=== PATIENT | female | born 1955 | race Two or more races ===

== ENCOUNTER → 2019-01-13 | Outpatient (CLI) | payer OTHER ==
[~2019-01-13] MED LIST: LIDOCAINE 2%/EPI 1:100,000 20 ML VIAL. IJ ONE
--- NOTE | 2019-01-14 17:19 | PATHOLOGY ---
[facility] Accession Number: [id number] . 01 Material submitted: . breast - LEFT BREAST TISSUE, RETROAREOLAR. Modifiers: left . 01 Clinical history: . Left breast mass . 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 ([facility] 01/14/2019) P/01/14/2019 . 02 Comment: There is no evidence of malignancy. (JPM:[facility] 01/14/2019) . 02 Electronically signed: . Law Fortune MD, Pathologist NPI- [id number] . 01 Gross description: . The specimen is received in formalin, labeled "Shelly Chapman, left breast mass". Received are multiple needle cores of fibrofatty tissue measuring 2.4 x 1.8 x 0.3 cm in aggregate dimensions. The specimen is submitted entirely in cassettes A1 through A3. The cold ischemic time is 3 minutes. The total formalin fixation time is 12 hours and 5 minutes. ([facility]; 01/13/2019) QAC/QAC . 02 Pathologist provided ICD-10: N60.42, N61.0 . 02 CPT . 350641 Specimen Comment: A courtesy copy of this report has been sent to Specimen Comment: [phone], . Specimen Comment: Report sent to / DR OSWALD Performed at: 01 [facility] [address], [place] [id number] MD Austin Greene MD Phone: [phone] Performed at: 02 [facility] [address], [place] [id number] MD Law Fortune MD Phone: [phone]
--- NOTE | 2019-01-15 12:42 | RAD ---
Ultrasound-guided left breast biopsy, 01/13/2019: History: Abnormal ultrasound findings An outside ultrasound study demonstrated a suspicious echogenic process in the retroareolar region on the left. Under local anesthesia, aseptic conditions and sonographic guidance the [employer] biopsy instrument was passed into this region via a lateral approach. Multiple 12-gauge vacuum-assisted core samples were obtained and sent to pathology for evaluation. A biopsy marker was then deposited the biopsy site. The biopsy instrument was removed and hemostasis obtained. Two-view postprocedural mammograms were obtained to document position of the biopsy marker. The marker lies just lateral to the midline in the retroareolar region. The patient tolerated the procedure well and left the department in good condition. The subsequent pathology report indicated the presence of mammary duct ectasia with ductal ectasia and xanthogranulomatous mastitis. There was no evidence of malignancy. The findings are considered to be concordant.
== END | disposition home or self-care (01) ==
LOC: US 08:28
PROVIDERS: ATTEND Nurse Practitioner
DX: N60.42 Mammary duct ectasia of left breast (principal); N61.0 Mastitis without abscess
CPT/HCPCS: 19083; 77065; C1713; 19085; 76942; 88305

== ENCOUNTER 2021-04-04 02:53 | Emergency (ER) | payer SELFPAY ==
[~2021-04-04] VITALS: Ht 152.4 cm; Wt 95.0 kg
[2021-04-04 03:13] LABS: BASO % 1 % (0-3); EOS # 0.1 x10^3/uL (0.0-0.7); EOS % 1 % (0-3); HEMATOCRIT 39.2 % (36.0-47.0); HEMOGLOBIN 13.3 g/dL (12.0-15.5); LYMPH # 2.9 x10^3/uL (1.0-4.8); LYMPH % 48 % (24-48); MEAN CORPUSCULAR HEMOGLOBIN 32 pg (25-35); MEAN CORPUSCULAR HGB CONC 34 g/dL (31-37); MEAN CORPUSCULAR VOLUME 94 fL (79-100); MONO # 0.5 x10^3/uL (0.0-1.1); MONO % 8 % (0-9); NEUT # 2.6 x10^3/uL (1.8-7.7); NEUT % 43 % (31-73); PLATELET COUNT 208 x10^3/uL (140-400); RED BLOOD COUNT 4.19 x10^6/uL (3.50-5.40); RED CELL DISTRIBUTION WIDTH 12.6 % (11.5-14.5); WHITE BLOOD COUNT 6.2 x10^3/uL (4.0-11.0)
[2021-04-04 03:25] LABS: CALCIUM 9.2 mg/dL (8.5-10.1); CREATININE 0.8 mg/dL (0.6-1.0); GFR 72.4; POTASSIUM 3.6 mmol/L (3.5-5.1)
[2021-04-04 03:30] LABS: ALBUMIN 3.8 g/dL (3.4-5.0); ALBUMIN/GLOBULIN RATIO 1.1 (1.0-1.7); MAGNESIUM 2.1 mg/dL (1.8-2.4); TOTAL BILIRUBIN 0.2 mg/dL (0.2-1.0); TOTAL PROTEIN 7.4 g/dL (6.4-8.2)
--- NOTE | 2021-04-04 03:30 | PHYS DOC ---
General Adult EDM: Chief Complaint: CHEST PAIN HPI: HPI: 65-year-old female past medical history of hypertension, hyperlipidemia and obesity, presents the ED with complaints of progressive, worsening headache that started around 6 PM with chest palpitations described as " I felt it was going really fast," and shaking that worsened throughout the night. Patient checked her blood pressure at home it was 190/90. Was unable to sleep, called her son who brought her to the emergency department and is assisting with translation. Patient is unsure of her baseline systolic blood pressure. Reports compliance with medication. Review of Systems: Review of Systems: Constitutional: Denies fever or chills. [] Eyes: Denies change in visual acuity. [] HENT: Denies nasal congestion or sore throat. [] Respiratory: Denies cough or shortness of breath. [] Cardiovascular: Denies hemoptysis or edema. [] GI: Denies abdominal pain, nausea, vomiting, or diarrhea. [] : Denies dysuria or hematuria Musculoskeletal: Denies back pain or joint pain. [] Integument: Denies rash or diaphoresis Neurologic: Denies neck pain, focal weakness or sensory changes. [] Endocrine: Denies polyuria or polydipsia. [] Lymphatic: Denies swollen glands. [] Psychiatric: Denies depression or suicidal ideations Heart Score: C/O Chest Pain: No HEART Score for Chest Pain: HEART Score for Chest Pain Response (Comments) Value History Slighlty/Non-Suspicious 0 ECG Nonspecific Repolarizatio 1 Age >45 - < 65 1 Risk Factors >3 Risk Factors or Hx CAD 2 Troponin < Normal Limit 0 Total 4 Risk Factors: Risk Factors: DM, Current or recent (<one month) smoker, HTN, HLP, family history of CAD, obesity. Risk Scores: Score 0 - 3: 2.5% MACE over next 6 weeks - Discharge Home Score 4 - 6: 20.3% MACE over next 6 weeks - Admit for Clinical Observation Score 7 - 10: 72.7% MACE over next 6 weeks - Early Invasive Strategies Allergies: Allergies: Allergies Coded Allergies Type Severity Reaction Last Updated Verified No Known Drug Allergies 01/13/19 No Physical Exam: PE: Constitutional: Well developed, well nourished, no acute distress, non-toxic appearance, hypertensive on arrival HENT: Normocephalic, atraumatic, Eyes: EOMI, conjunctiva normal, no discharge. Neck: Normal range of motion, supple, Cardiovascular: S1/2 present, regular rhythm Lungs & Thorax: Speaking in full sentences, bilateral equal chest rise, no tachypnea or increased work of breathing Abdomen: soft, no tenderness, Skin: Warm, dry, Back: No tenderness, no CVA tenderness. [] Extremities: No tenderness, no cyanosis, Neurologic: Alert and oriented X 3, normal motor function, normal sensory function, no focal deficits noted, gait Psychologic: judgement normal, mood-roving eye movements, very anxious/appears chronological difficulty, Current Patient Data: Labs: Laboratory Tests Test 04/04/21 03:07 White Blood Count 6.2 x10^3/uL (4.0-11.0) Red Blood Count 4.19 x10^6/uL (3.50-5.40) Hemoglobin 13.3 g/dL (12.0-15.5) Hematocrit 39.2 % (36.0-47.0) Mean Corpuscular Volume 94 fL (79-100) Mean Corpuscular Hemoglobin 32 pg (25-35) Mean Corpuscular Hemoglobin Concent 34 g/dL (31-37) Red Cell Distribution Width 12.6 % (11.5-14.5) Platelet Count 208 x10^3/uL (140-400) Neutrophils (%) (Auto) 43 % (31-73) Lymphocytes (%) (Auto) 48 % (24-48) Monocytes (%) (Auto) 8 % (0-9) Eosinophils (%) (Auto) 1 % (0-3) Basophils (%) (Auto) 1 % (0-3) Neutrophils # (Auto) 2.6 x10^3/uL (1.8-7.7) Lymphocytes # (Auto) 2.9 x10^3/uL (1.0-4.8) Monocytes # (Auto) 0.5 x10^3/uL (0.0-1.1) Eosinophils # (Auto) 0.1 x10^3/uL (0.0-0.7) Basophils # (Auto) 0.0 x10^3/uL (0.0-0.2) Laboratory Tests 04/04/21 03:07 EKG: EKG: Sinus rhythm 70 bpm, left axis deviation, normal intervals, T wave inversion lead III, no ST elevations or ST depressions, no active chest pain Repeat EKG sinus rhythm 73 bpm, left axis deviation, normal intervals, T wave inversion lead III, no ST elevations or ST depressions, PVC present Radiology/Procedures: Radiology/Procedures: IMAGING REPORT Signed PATIENT: MARY EDGE ACCOUNT: [id number] : 1955 LOCATION: ER AGE: 65 SEX: F EXAM STATUS: PRE ER ORD. PHYSICIAN: KAREN AGUILAR DO REASON: hedache PROCEDURE: CT HEAD WO CONTRAST CT HEAD/BRAIN WO Date: 04/04/2021 3:47 AM Clinical Indication: Reason: hedache / Spl. Instructions: / History: Comparison: None. Technique: 5 mm axial tomographic images were obtained of the head without contrast. These were viewed on brain and bone windows. One or more of the following dose reduction techniques were utilized: Automated exposure control (AEC), Adjustment of mA and/or kV according to patient size, Use of iterative reconstruction technique such as ASiR, CT scan done according to ALARA and image gently/image wisely Findings: The brain parenchyma is normal in attenuation. No acute hemorrhage. The ventricles are normal in size, shape, and morphology. The dawkins-white matter junction is normal. The subarachnoid cisterns are patent. Left posterior frontal 6 mm dural calcification versus tiny meningioma. The visualized paranasal sinuses are normal. The visualized portions of the orbits and globes are normal. The mastoid air cells are clear. The turkish line attendant topogram shows no lytic lesion or fracture. Impression: No acute intracranial process. Electronically signed by: Irene Plasencia MD (04/04/2021 3:57 AM) [facility] DICTATED and SIGNED BY: IRENE PLASENCIA MD DATE: 04/04/21 [id number] IMAGING REPORT Signed PATIENT: MARY EDGE ACCOUNT: [id number] : 1955 LOCATION: ER AGE: 65 SEX: F EXAM STATUS: PRE ER ORD. PHYSICIAN: KAREN AGUILAR DO REASON: cp PROCEDURE: PORTABLE CHEST 1V XR CHEST 1V INDICATION: cp COMPARISON STUDY: None. FINDINGS: Lungs: Normal lung volume. No focal airspace disease. Normal pulmonary vasculature. Pleura: No pleural effusion or pneumothorax. Heart and Mediastinum: Cardiomegaly. Tortuous atherosclerotic aorta. IMPRESSION: No acute cardiopulmonary process. Electronically signed by: Irene Plasencia MD (04/04/2021 3:49 AM) [facility] DICTATED and SIGNED BY: IRENE PLASENCIA MD DATE: 04/04/21 [id number] 0 Course & Med Decision Making: Course & Med Decision Making Pertinent Labs and Imaging studies reviewed. (See chart for details) Concern for headache, palpitations and decreased sleep with associated nervousness. On reevaluation patient states she has racing thoughts and has been worrying constantly. Takes no routine medications for anxiety or stress. Was unable to sleep all night. Will discharge home with strict ED return p recautions were given for chest pressure, syncope, neurologic deficits, dyspnea, suicidal or homicidal ideations. Encouraged urgent outpatient follow-up with PMD and psychiatry. Life-threatening processes were considered but are low suspicion at this time, given history, physical exam and ED workup. Pt was educated on all prescription medications and adverse effects. All patient's questions were answered and pt was stable at time of discharge. Life/limb-threatening differential includes but is not limited to, end organ damage/sepsis, ICH/CVA, ACS/CAD/angina, PE, trauma/abuse/neglect, neurologic deficit, alcohol/drug ingestion, toxidrome, suicidal/homicidal ideations plans or attempts, psychosis or mental illness resulting in self neglect and inability to care for self. I have spoken with the patient and/or caregivers. I explained the patient's condition, diagnoses and treatment plan based on the information available to me at this time. I have answered the patient and/or caregiver's questions and addressed any concerns. The patient and/or caregivers have a good understanding of patient's diagnosis, condition and treatment plan as can be expected at this point. Vital signs have been stable. Patient's condition is stable and appropriate for discharge from the emergency department. Patient will pursue further outpatient evaluation with primary care physician or other designated or consulting physician as outlined in the discharge instructions. The patient and/or caregivers are agreeable to this plan of care and follow-up instructions have been explained in detail. The patient and/or caregivers have received these instructions in written form and have expressed a n understanding of the discharge instructions. The patient and/or caregivers are aware that any significant change of condition or worsening of symptoms should prompt immediate return to this or the closest emergency department or call to 911Dean Markham Disclaimer: Shahrzad Disclaimer: This electronic medical record was generated, in whole or in part, using a voice recognition dictation system. Departure Departure Impression: Primary Impression: Anxiety Additional Impressions: Palpitations Headache Disposition: HOME / SELF CARE / HOMELESS Condition: STABLE Referrals: SUNNY OSWALD RN, MS, FN (PCP) Follow-up with your primary care physician in 24 to 48 hours OR FOLLOW UP WITH FAMILY MEDICINE: [address] [facility] [place] [address] AND TO RECHECK BLOOD PRESSU Patient Instructions: Anxiety and Panic Attacks, General Headache Without Cause Additional Instructions: FOLLOW UP WITH PSYCHIATRY: FOR DEFINITIVE MANAGEMENT of anxiety Dr. Tommy Angeles Psychiatry Specialist [address], [place] [address] EMERGENCY DEPARTMENT GENERAL DISCHARGE INSTRUCTIONS Thank you for coming to [facility] Emergency Department (ED) today and trusting us with you care. We trust that you had a positive experience in our Emergency Department. If you wish to speak to the department management, you may call the Director at [phone]. YOUR FOLLOW UP INSTRUCTIONS ARE FOLLOWS: 1. Do you have a private Doctor? If you do not have a private doctor, please ask for a resource list of physicians or clinics that may be able to assist you with follow up care. 2. The Emergency Physicain has interpreted your x-rays. The X-Ray specialist will also review them. If there is a change in the findings, you will be notified in 48 hours when at all possible. 3. A lab test or culture has been done, your results will be reviewed and you will be notified if you need a change in treatment. ADDITIONAL INSTRUCTIONS AND INFORMATION: 1. Your care today has been supervised by a physician who is specially trained in emergency care. Many problems require more than one evaluation for a complete diagnosis and treatment. We recommend that you schedule your follow up appointment as recommended to ensure complete treatment of you illness or injury. If you are unable to obtain follow up care and continue to have a problem, or if your condition worsens, we recommend that you return to the ED. 2. We are not able to safely determine your condition over the phone nor are we able to give sound medical advice over the phone. For these safety reasons, if you call for medical advice we will ask you to come to the ED for further evaluation. 3. If you have any questions regarding these discharge instructions please call the ED at [phone]. SAFETY INFORMATION: In the interest of safety, wellness, and injury prevention; we encourage you to wear your sealbelt, if you smoke; quite smoking, and we encourage family to use a protective helmet for bicycling and other sporting events that present an increased risk for head injury. IF YOUR SYMPTOMS WORSEN OR NEW SYMPTOMS DEVELOP, OR YOU HAVE CONCERNS ABOUT YOUR CONDITION; OR IF YOUR CONDITION WORSENS WHILE YOU ARE WAITING FOR YOUR FOLLOW UP APPOINTMENT; EITHER CONTACT YOUR PRIMARY CARE DOCTOR, THE PHYSICIAN WHOSE NAME AND NUMBER YOU WERE GIVEN, OR RETURN TO THE ED IMMEDIATELY. Scripts Hydroxyzine Hcl (HYDROXYZINE HCL) 25 Mg Tablet 1-2 TAB PO QHS PRN for INSOMNIA, #20 TAB Prov: KAREN AGUILAR DO 04/04/21 KAREN AGUILAR DO Apr 04, 2021 03:30
--- NOTE | 2021-04-04 03:51 | RAD ---
XR CHEST 1V INDICATION: cp COMPARISON STUDY: None. FINDINGS: Lungs: Normal lung volume. No focal airspace disease. Normal pulmonary vasculature. Pleura: No pleural effusion or pneumothorax. Heart and Mediastinum: Cardiomegaly. Tortuous atherosclerotic aorta. IMPRESSION: No acute cardiopulmonary process. Electronically signed by: Abisai Plasencia MD (04/04/2021 3:49 AM) [facility]
--- NOTE | 2021-04-04 03:59 | RAD ---
CT HEAD/BRAIN WO Date: 04/04/2021 3:47 AM Clinical Indication: Reason: hedache / Spl. Instructions: / History: Comparison: None. Technique: 5 mm axial tomographic images were obtained of the head without contrast. These were view ed on brain and bone windows. One or more of the following dose reduction techniques were utilized: A utomated exposure control (AEC), Adjustment of mA and/or kV according to patient size, Use of iterati ve reconstruction technique such as ASiR, CT scan done according to ALARA and image gently/image cho ly Findings: The brain parenchyma is normal in attenuation. No acute hemorrhage. The ventricles are normal in size , shape, and morphology. The dawkins-white matter junction is normal. The subarachnoid cisterns are barcenas nt. Left posterior frontal 6 mm dural calcification versus tiny meningioma. The visualized paranasal sinuses are normal. The visualized portions of the orbits and globes are no rmal. The mastoid air cells are clear. The college scouting coordinator topogram shows no lytic lesion or fracture. Impression: No acute intracranial process. Electronically signed by: Abisai Plasencia MD (04/04/2021 3:57 AM) [facility]
[2021-04-04] MEDS ORDERED: KETOROLAC 15 MG/ML VIAL. IVP ONE (05:00)
[2021-04-04] MEDS ORDERED: DEXAMETHASONE SOD PHOS 20 MG/5 ML VIAL. IV ONE (05:00)
[2021-04-04 05:13] LABS: BILIRUBIN,URINE NEGATIVE (NEG); CLARITY,URINE CLEAR; COLOR,URINE YELLOW; NITRITE,URINE NEGATIVE (NEG); PH,URINE 6.5 (<5.0-8.0); PROTEIN,URINE NEGATIVE (NEG-TRACE); UROBILINOGEN,URINE 0.2 mg/dL (0.2 mg/dL)
[2021-04-04 05:18] LABS: BACTERIA,URINE 0 /HPF (0-FEW); RBC,URINE 0 /HPF (0-2)
--- NOTE | 2021-04-04 05:18 | EKG ---
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
--- NOTE | 2021-04-04 05:18 | EKG ---
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
[2021-04-04 05:19] LABS: BARBITURATES NEG (NEG); BENZODIAZEPINES NEG (NEG); CANNABINOIDS NEG (NEG); COCAINE NEG (NEG); METHADONE NEG (NEG); OPIATES NEG (NEG); PHENCYCLIDINE NEG (NEG)
[2021-04-04] MEDS ORDERED: HYDR25TA PO (05:19)
[2021-04-04 05:20] VITALS: BP 154/71
[2021-04-04 05:27] LABS: AMPHETAMINE/METHAMPHETAMINE NEG (NEG)
== END 2021-04-04 05:27 | disposition home or self-care (01) ==
LOC: ER 02:53
DX: F41.9 Anxiety disorder, unspecified (principal); R00.2 Palpitations; R51.9 Headache, unspecified; I10 Essential (primary) hypertension
CPT/HCPCS: 36415; 70450; 71045; 80053; 80307; 81001; 83690; 83735; 83880; 84484; 85025; 93005; 96374; 96375; 99285; J1100; J1885